=== PATIENT | female | born 1955 | race Caucasian/White ===

== ENCOUNTER 2016-09-22 06:13 | Day surgery (SDC) | payer MEDICARE, MEDICAID ==
[2016-09-22] VITALS (7 sets, daily range): BP systolic 123–145; BP diastolic 65–90; PULSE 64–91; TEMP 97.6–97.8
[~2016-09-22] VITALS: Ht 154.9 cm; Wt 63.3 kg
[2016-09-22] MEDS ORDERED: PRINIVIL10 MG PO (06:47)
[2016-09-22] MEDS ORDERED: GLUCOPHAGE1000 MG PO (06:47)
[2016-09-22] MEDS ORDERED: TYLENOL 325MG325 MG PO (06:48)
[2016-09-22] MEDS ORDERED: PRILOSEC 20MG20 MG PO (06:50)
[2016-09-22] MEDS ORDERED: LANTUS100 U/ML SQ (06:50)
[2016-09-22] MEDS ORDERED: CELEXA40 MG PO (06:51)
== END 2016-09-22 11:50 | disposition home or self-care (01) ==
LOC: SDCO 06:13
DX: S83.241A Other tear of medial meniscus, current injury, right knee, initial encounter (principal); M22.41 Chondromalacia patellae, right knee; I10 Essential (primary) hypertension; K21.9 Gastro-esophageal reflux disease without esophagitis; E11.9 Type 2 diabetes mellitus without complications; M19.90 Unspecified osteoarthritis, unspecified site; J45.909 Unspecified asthma, uncomplicated; F41.8 Other specified anxiety disorders; E03.9 Hypothyroidism, unspecified; R10.13 Epigastric pain; Z79.4 Long term (current) use of insulin; Z79.84 Long term (current) use of oral hypoglycemic drugs; Z90.710 Acquired absence of both cervix and uterus; Z83.3 Family history of diabetes mellitus
CPT/HCPCS: J0690; J1100; J1885; J2405; J2704; J3010; J7030

== ENCOUNTER → 2020-05-01 | Outpatient (CLI) | payer MEDICARE, MEDICAID ==
[~2020-05-01] MED LIST: CELEXA40 MG PO; GLUCOPHAGE1000 MG PO; LANTUS100 U/ML SQ; PRILOSEC 20MG20 MG PO; PRINIVIL10 MG PO; TYLENOL 325MG325 MG PO
== END ==
LOC: DIA.ED
DX: E11.9 Type 2 diabetes mellitus without complications (principal); Z79.4 Long term (current) use of insulin; E03.9 Hypothyroidism, unspecified
CPT/HCPCS: G0108

== ENCOUNTER → 2020-05-22 | Outpatient (CLI) | payer MEDICARE, MEDICAID | LOC: DIA.ED 09:36 | DX: E11.9 Type 2 diabetes mellitus without complications (principal); Z79.4 Long term (current) use of insulin; E03.9 Hypothyroidism, unspecified ==